=== PATIENT | male | born 1950 | race Caucasian/White ===

== ENCOUNTER 2024-09-07 08:41 | Day surgery (SDC) | payer MEDICARE ==
[2024-09-07] MEDS ORDERED: Labetalol 20 MG/4 ML Syringe IV ONE (08:42)
[2024-09-07] MEDS ORDERED: fentaNYL 100 MCG/2 ML SDV IV ONE (08:42)
[2024-09-07] MEDS ORDERED: Midazolam 1 MG/ML 2 ML SDV IV ONE (08:42)
[2024-09-07] MEDS: Sodium Chloride 0.9% 10 ML Syringe FLUSH PRN (09:25)
[2024-09-07] MEDS: Lactated Ringers 1,000 ML IV PRN (10:00)
[2024-09-07] MEDS: acetaZOLAMIDE 500 MG Cap.ER PO ONE (11:15)
== END 2024-09-07 11:38 | disposition home or self-care (01) ==
LOC: FB.SDS 08:41
PROVIDERS: ATTEND Ophthalmology
DX: H26.9 Unspecified cataract (principal); Z79.899 Other long term (current) drug therapy; Z79.82 Long term (current) use of aspirin; Z88.8 Allergy status to other drugs, medicaments and biological substances; Z87.891 Personal history of nicotine dependence
CPT/HCPCS: 00142; 99100; A9270-GY; J1920; J2250; J3010; J7120